=== PATIENT | female | born 2000 | race Caucasian/White ===

== ENCOUNTER 2022-08-07 04:07 | Emergency (ER) | payer MEDICAID, OTHER ==
[~2022-08-07] VITALS: Ht 160 cm; Wt 125.0 kg
[2022-08-07] MEDS ORDERED: hydrOXYzine (VISTARIL/ATARAX) 25 MG capsule/tablet PO STA (04:27)
[2022-08-07] MEDS ORDERED: IBUPROFEN 800 MG (MOTRIN) TAB PO STA (04:27)
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
[2022-08-07 06:12] VITALS: BP 128/71
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
== END 2022-08-07 06:12 | disposition home or self-care (01) ==
LOC: ER FS 04:11
DX: S80.02XA Contusion of left knee, initial encounter (principal); F41.9 Anxiety disorder, unspecified; R00.0 Tachycardia, unspecified; E66.9 Obesity, unspecified; F17.210 Nicotine dependence, cigarettes, uncomplicated; Y04.0XXA Assault by unarmed brawl or fight, initial encounter; W18.30XA Fall on same level, unspecified, initial encounter
CPT/HCPCS: 73562